=== PATIENT | female | born 1935 | race Caucasian/White ===

== ENCOUNTER → 2016-09-10 | Outpatient (CLI) | payer MEDICARE, BC ==
[~2016-09-10] MED LIST: ALLERCLEAR10 MG PO; ANTIBIOTIC PO; CALCIUM/MAG/VIT D PO; FISH OIL 1,0001 EAC4 PO; HORMONE PO; METOPROLOL TAR25 MG PO; PRAVACHOL20 MG PO; PROTONIX20 MG PO; VITAMIN D350000 UNIT PO; VITAMIN E600 UNIT PO; [UNRECOGNIZED DRUG - OTHER] PO
--- NOTE | ~2016-09-10 | EKG ---
PATIENT: DUNCAN KRISHNAMURTHY UNIT #: [id number] Ventricular Rate: 58 BPM Atrial Rate: 58 BPM P-R Interval: 232 ms QRS Duration: 98 ms Q-T Interval: 416 ms QTC Calculation(Bezet): 408 ms P Linwood: 37 degrees Calculated R Linwood: 42 degrees Calculated T Linwood: 64 degrees Diagnosis Line: Sinus bradycardia with 1st degree A-V block Diagnosis Line: Otherwise normal ECG Diagnosis Line: No previous ECGs available Diagnosis Line: Confirmed by AUGUST CARLOS MD ([id number]) on 09/10/2016 Diagnosis Line: 10:27:44 PM INTERPRETING MD: BREANNA WATSON
== END | disposition home or self-care (01) ==
LOC: CAMB 11:29
DX: Z01.818 Encounter for other preprocedural examination (principal); N63 Unspecified lump in breast
CPT/HCPCS: 93005

== ENCOUNTER → 2016-09-12 | Day surgery (SDC) | payer MEDICARE, BC ==
--- NOTE | ~2016-09-12 | NM79 ---
[facility] A Service of [facility] & [facility] RADIOLOGY TEXT RESULTS PATIENT: DUNCAN KRISHNAMURTHY LOCATION: [facility] : 35 UNIT #: [id number] AGE: [address]: Aiden Bernard MD SEX: F ORDER DR: [id number] [facility] [address] [place] [address]. [place], [place] [address] [id number] O MR#: [id number] Acc #: [id number] NAME: DUNCAN KRISHNAMURTHY : 1935 SEX: F STUDY DATE/TIME: 09/12/2016 11:17 UNIT: [facility] ROOM: STUDY DESCRIPTION: NM [employer] Node Inj Attending Physician: Aiden Bernard M.D. Ordering Physician: Aiden Bernard M.D. Primary Care Physician: Car Galvan M.D. MEDICAL IMAGING REPORT This report is preliminary unless electronic signature is present EXAM [employer] node injection on the left, 09/12/2016 INDICATION Left breast cancer. Injection requested in conjunction with excisional lumpectomy. FINDINGS The patient's prior imaging studies were reviewed. She was deemed an adequate candidate for the procedure. The procedure and risks were explained to the patient. These included but were not limited to bleeding, infection, damage to adjacent structures. The patient gave both oral and written consent to proceed and the consent form was signed and on the chart prior to the procedure. Prior to procedure a "time-out" protocol was also performed to document patient identity and procedure details. The nipple areolar complex on the left was wiped with a sterile alcohol pad x3. Thereafter, using a periareolar approach, 3 separate injections were performed from the 2 o'clock to the 4 o'clock positions in the left breast with a total injection of approximately 568 mcCi of technetium 99m filtered sulfur colloid. There are no immediate post procedure complications. The patient tolerated the procedure well. IMPRESSION Technically successful sentinel node injection on the left. No immediate post procedure complications. Dictated by... Maxim Mendenhall M.D. THIS IS AN ELECTRONICALLY VERIFIED REPORT Maxim Mendenhall M.D. at 09/12/2016 5:13 PM [facility] A Service of [facility] & [facility] RADIOLOGY TEXT RESULTS PATIENT: DUNCAN KRISHNAMURTHY LOCATION: [facility] #: [id number] : 35 UNIT #: [id number] AGE: [address]: Aiden Bernard MD SEX: F ORDER DR: YONI/joceline TD: 09/12/2016 14:40 JOB #: [id number] MEDICAL IMAGING REPORT Page 1 of 1 COPY
--- NOTE | ~2016-09-12 | US202 ---
[facility] A Service of [facility] & [facility] RADIOLOGY TEXT RESULTS PATIENT: DUNCAN KRISHNAMURTHY LOCATION: [facility] : 35 UNIT #: [id number] AGE: [address]: Aiden Bernard MD SEX: F ORDER DR: [id number] [facility] [address] [facility]. [place], [place] [address] [id number] O MR#: [id number] Acc #: [id number] NAME: DUNCAN KRISHNAMURTHY : 1935 SEX: F STUDY DATE/TIME: 09/12/2016 10:04 UNIT: [facility] ROOM: STUDY DESCRIPTION: US Breast Guided Ndl Loc 1st Attending Physician: Aiden Bernard M.D. Ordering Physician: Aiden Bernard M.D. Primary Care Physician: Car Galvan M.D. MEDICAL IMAGING REPORT This report is preliminary unless electronic signature is present EXAM Ultrasound guided needle localization procedure left breast 09/12/2016 INDICATIONS 81-year-old female with biopsy-proven malignancy in the 3 o'clock position left breast; ultrasound guided needle localization procedure for lumpectomy requested. FINDINGS The patient's prior imaging studies for review. She was deemed an adequate candidate for the procedure. Procedure and risks were explained to the patient. These included, but are not limited to bleeding, infection, damage to adjacent structures. The patient gave both oral and written consent to proceed and the consent form was signed and on the chart prior to procedure. Prior to the procedure a "time-out" protocol was performed to document patient identity and procedure details. The left breast was prepped and draped in the usual sterile fashion. Maximum sterile-barrier technique appropriate for procedure guidelines was utilized. This included the use of sterile instruments, sterile gloves, sterile barriers. Local anesthesia was achieved with about 4 mL of a buffered 1% lidocaine solution. Thereafter, using ultrasound guidance, a 5-cm [place] needle and wire system was introduced into the left breast mass at 3 o'clock. Appropriate needle location was documented with ultrasound throughout and images demonstrating appropriate needle placement were saved to the PACS system. The wire was deployed and seen to be in good position on ultrasound. At this point, the procedure was concluded. A clip/wire placement mammogram was performed and demonstrated appropriate needle and wire placement less than 5 mm from the previously placed biopsy clip at 3 o'clock on both projections. Images were marked on the DR PACS system and also printed and marked for intraoperative views with plain STS. [facility] A Service of [facility] RADIOLOGY TEXT RESULTS PATIENT: DUNCAN KRISHNAMURTHY LOCATION: [facility] : 35 UNIT #: [id number] AGE: [address]: Aiden Bernard MD SEX: F ORDER DR: film technique. Subsequent specimen radiograph demonstrates the presence of the previously placed biopsy clip along with the localization wire and a pleomorphic clustered microcalcifications and irregularly marginated mass within the specimen. Findings were called to Dr. Bernard at the time of specimen receipt and dictated separately. Please see the final pathology report for further details. IMPRESSION Successful ultrasound-guided needle localization procedure of a biopsy-proven malignancy in the 3 o'clock position left breast. No immediate post procedure complications. Pathology results are pending. Please see the final pathology report. BIRADS: 6 Known biopsy-proven malignancy. Dictated by... Maxim Mendenhall M.D. THIS IS AN ELECTRONICALLY VERIFIED REPORT Maxim Mendenhall M.D. at 09/12/2016 5:13 PM YONI/opal TD: 09/12/2016 15:18 JOB #: [id number] MEDICAL IMAGING REPORT Page 1 of 1 COPY
--- NOTE | ~2016-09-12 | MY13 ---
[facility] A Service [facility] RADIOLOGY TEXT RESULTS PATIENT: DUNCAN KRISHNAMURTHY LOCATION: [facility] : 35 UNIT #: [id number] AGE: [address]: Aiden Bernard MD SEX: F ORDER DR: [id number] [place] [id number] [facility]. [place], [place] [address] [id number] O MR#: [id number] Acc #: [id number] NAME: DUNCAN KRISHNAMURTHY : 1935 SEX: F STUDY DATE/TIME: 09/12/2016 13:09 UNIT: [facility] ROOM: STUDY DESCRIPTION: MY Surgical Specimen Attending Physician: Aiden Bernard M.D. Ordering Physician: Aiden Bernard M.D. Primary Care Physician: Car Galvan M.D. MEDICAL IMAGING REPORT This report is preliminary unless electronic signature is present EXAM Specimen radiograph 09/12/2016 INDICATION Status post ultrasound-guided needle localization procedure. TECHNIQUE Specimen radiograph was performed. COMPARISON Postprocedure clip placement mammogram 09/12/2016. FINDINGS The specimen radiograph demonstrates the presence of the localization wire, previously placed biopsy clip, and probable two additional venous stasis clips in the specimen along with an irregular marginated mass and cluster of pleomorphic microcalcifications. Additional benign calcifications are also present in the specimen. Findings were called to Dr. Bernard in the operating room at the time of this dictation. IMPRESSION 1. Specimen radiograph contains the previously placed biopsy clip, a cluster of pleomorphic microcalcifications, and irregularly marginated mass, along with probable hemostasis clips. Findings were called to Dr. Bernard in the operating room at the time of this dictation. BIRADS: 6 Known biopsy; proven malignancy. Dictated by... Maxim Mendenhall M.D. [facility] A Service [facility] RADIOLOGY TEXT RESULTS PATIENT: DUNCAN KRISHNAMURTHY LOCATION: [facility] : 35 UNIT #: [id number] AGE: [address]: Aiden Bernard MD SEX: F ORDER DR: THIS IS AN ELECTRONICALLY VERIFIED REPORT Maxim Mendenhall M.D. at 09/12/2016 5:13 PM Jack TD: 09/12/2016 15:06 JOB #: [id number] MEDICAL IMAGING REPORT Page 1 of 1 COPY
--- NOTE | ~2016-09-12 | MY14 ---
[facility] A Service of [facility] RADIOLOGY TEXT RESULTS PATIENT: DUNCAN KRISHNAMURTHY LOCATION: [facility] : 35 UNIT #: [id number] AGE: [address]: Aiden Bernard MD SEX: F ORDER DR: [id number] [facility] [address] [place], [place] [address] [id number] O MR#: [id number] Acc #: [id number] NAME: DUNCAN KRISHNAMURTHY : 1935 SEX: F STUDY DATE/TIME: 09/12/2016 10:24 UNIT: [facility] ROOM: STUDY DESCRIPTION: MY Post Bx Film Attending Physician: Aiden Bernard M.D. Ordering Physician: Aiden Bernard M.D. Primary Care Physician: Car Galvan M.D. MEDICAL IMAGING REPORT This report is preliminary unless electronic signature is present EXAM Clip placement mammogram, 09/12/2016. INDICATION Status post ultrasound-guided needle localization procedure same date. TECHNIQUE CC and true lateral views left breast were obtained and reviewed with an FDA-approved CAD device. COMPARISON 08/20/2016 FINDINGS Previously placed biopsy clip in the 3 o'clock position of the left breast noted. The needle localization wire and needle are superimposed over the clip on the CC view and are less than 5 mm from the clip on the ML view. This documents appropriate positioning of the localization wire for the planned excisional biopsy. Images were printed for intraoperative views and marked for intraoperative views. Images are also now available on the [employer] PACS system and marked as well. Appropriate notes were left in the patient's chart. IMPRESSION The needle and needle localization wire are less than 5 mm from the previously placed biopsy clip in the 3 o'clock position on both projections. Images have been marked on the [employer] system and also printed and marked for intraoperative views with plain film technique. BIRADS: 6 [facility] A Service [facility] RADIOLOGY TEXT RESULTS PATIENT: DUNCAN KRISHNAMURTHY LOCATION: [facility] : 35 UNIT #: [id number] AGE: [address]: Aiden Bernard MD SEX: F ORDER DR: Dictated by... Maxim Mendenhall M.D. THIS IS AN ELECTRONICALLY VERIFIED REPORT Maxim Mendenhall M.D. at 09/12/2016 5:12 PM YONI/napoleon TD: 09/12/2016 12:16 JOB #: [id number] MEDICAL IMAGING REPORT Page 1 of 1 COPY
--- NOTE | ~2016-09-12 | OR ---
Unit #: [id number] #: [id number] Patient: DUNCAN KRISHNAMURTHY [id number] [address] [address] [id number] O MR#: [id number] NAME: DUNCAN KRISHNAMURTHY ROOM: Date of Procedure: 09/12/2016 Admission Date: 09/12/2016 Surgeon: Aiden Bernard M.D. : 1935 Attending Physician: Aiden Bernard M.D. Primary Care Physician: Car Galvan M.D. OPERATIVE REPORT PREOPERATIVE DIAGNOSIS Carcinoma, left breast lateral aspect. POSTOPERATIVE DIAGNOSIS Carcinoma, left breast lateral aspect. PROCEDURES PERFORMED 1. Needle localization lumpectomy, left breast lateral aspect. 2. Left axillary sentinel lymph node biopsy. 3. Left axillary dissection. ANESTHESIA General LMA anesthesia with 0.5% Marcaine plain local anesthesia. FINDINGS The patient's sentinel lymph node was positive with an 8 mm focus. A limited left axillary dissection was performed. The breast lesion was within the specimen on specimen radiograph. SPECIMENS Sent to pathology. COMPLICATIONS None apparent. CONDITION The patient tolerated the procedure well. INDICATIONS FOR PROCEDURE The patient is an 81-year-old white female, who recently had mammography performed. This revealed an abnormality in the lateral aspect of the left breast. 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 She was presented with the options of mastectomy with or without reconstruction versus breast conservation therapy. She wishes to proceed with lumpectomy and left axillary sentinel lymph node biopsy. DESCRIPTION OF PROCEDURE After obtaining informed consent as well as receiving preoperative antibiotics and knee-high SCDs, the patient who earlier in the day underwent ultrasound-guided needle localization of the left breast cancer as well as injection beneath the left nipple areolar complex with Unit #: [id number] #: [id number] Patient: DUNCAN KRISHNAMURTHY radioactive sulfur colloid. She was brought to the operating room and after adequate general LMA anesthesia was obtained, had her left breast injected sterilely with Lymphazurin blue beneath the left nipple-areolar complex. This was massaged for 5 minutes by the clock. At this point in time, the left breast and axilla were prepped and draped in a sterile fashion. Using the Neoprobe as a guide, a curvilinear incision was made with a knife in the left axillary area and it was taken down through the skin with a knife and through the subdermal tissues and subcutaneous tissues to the level of the axillary contents with electrocautery. Hemostasis was obtained with electrocautery as well as micro-clips. The patient was found to have a blue lymph node present beneath the left pectoralis major muscle. This was gently dissected free from the surrounding structures with feeding vessels taken with micro-clips as well as the electrocautery. The radioactive counts were over 100; however, after the node was removed, all counts were essentially zero in the left axilla. The specimen was sent to pathology. While the lymph node was being looked at by the pathologist, a curvilinear incision was made in the lateral aspect of the left breast. Dissection was taken down through the skin with the knife and then the electrocautery was used through the subdermal and subcutaneous tissues. The wire was found and the area around the hook of the wire was grasped with an Allis clamp. It was excised circumferentially with electrocautery with good hemostasis as well as micro-clips being used for hemostasis and 3-0 Vicryl suture ligatures. The specimen was dissected free from the surrounding structures and sent to mammography, where on specimen radiograph, the lesion was present within the specimen as was the clip and wire. The specimen was then sent to pathology. While removing the left breast mass, the pathologist called into the room and informed us that the left sentinel lymph node was positive with an 8 mm focus. At this point in time, an additional axillary tissue was dissected free. It was grasped with a ring clamp and was dissected free from the surrounding structures sweeping down from below the left axillary vein. The area of the thoracodorsal nerve and long thoracic nerves was meticulously avoided. The hemostasis was obtained with the electrocautery as well as micro-clips and 3-0 Vicryl suture ligatures. The left axillary dissection contents were sent to pathology. At this point in time, both wounds were copiously irrigated. There was good hemostasis in each location. Both wounds were infiltrated with 0.5% Marcaine plain local anesthesia. The deep tissues in each location were closed with interrupted 3-0 Vicryl sutures. The skin in each location was closed with surgical florida. A dry dressing was applied followed by a Tegaderm dressing. Needle counts, sponge counts, and instrument counts were all correct as reported by the scrub nurse x2. The patient went from the operating room to the recovery room in stable condition. Dictated by... Lori Hutchins/amado TD: 09/13/2016 05:06 JOB #: [id number] CC: Lori Zapien M.D. [facility] Unit #: [id number] #: [id number] Patient: DUNCAN KRISHNAMURTHY OPERATIVE REPORT Page 1 of 1 X Aiden Bernard MD X PROCEDURE OPERATIVE NOTE
== END | disposition home or self-care (01) ==
LOC: CSUR 08:59
DX: D05.12 Intraductal carcinoma in situ of left breast (principal); C96.9 Malignant neoplasm of lymphoid, hematopoietic and related tissue, unspecified; I10 Essential (primary) hypertension; I25.10 Atherosclerotic heart disease of native coronary artery without angina pectoris; K21.9 Gastro-esophageal reflux disease without esophagitis; Z87.440 Personal history of urinary (tract) infections; Z88.0 Allergy status to penicillin; Z79.899 Other long term (current) drug therapy; Z98.41 Cataract extraction status, right eye; Z98.42 Cataract extraction status, left eye
CPT/HCPCS: 76098; 88305; 88307; 88331; 88360; A9541; G0204; J3010; J3370; Q9968

== ENCOUNTER → 2016-09-24 | Outpatient (CLI) | payer MEDICARE, BC ==
[2016-09-24 12:14] LABS: CALCIUM SERUM 9.3 mg/dL (8.4-10.2); GLOM FILT RATE Estimated 52.8 mL/min (>60); POTASSIUM 4.5 mmol/L (3.5-5.1)
== END | disposition home or self-care (01) ==
LOC: CAMB 10:31
PROVIDERS: Surgery
DX: Z01.812 Encounter for preprocedural laboratory examination (principal); C50.912 Malignant neoplasm of unspecified site of left female breast
CPT/HCPCS: 36415; 80048

== ENCOUNTER → 2016-09-26 | Day surgery (SDC) | payer MEDICARE, BC ==
--- NOTE | ~2016-09-26 | OR ---
Unit #: [id number] #: [id number] Patient: DUNCAN KRISHNAMURTHY [id number] [address] [place], [place] [address] [id number] O MR#: [id number] NAME: DUNCAN KRISHNAMURTHY ROOM: Date of Procedure: 09/26/2016 Admission Date: 09/26/2016 Surgeon: Aiden Bernard M.D. : 1935 Attending Physician: Aiden Bernard M.D. Primary Care Physician: Angelica Caro M.D. OPERATIVE REPORT PREOPERATIVE DIAGNOSIS Positive medial and anterior margin of left breast lumpectomy. POSTOPERATIVE DIAGNOSIS Positive medial and anterior margin of left breast lumpectomy. PROCEDURES PERFORMED Re-excision of anterior margin and medial margins of left breast lumpectomy site. ANESTHESIA General LMA anesthesia with 0.5% Marcaine plain local anesthesia. FINDINGS The patient was found to have a re-excision of the anterior and medial aspects of her lumpectomy site. SPECIMENS Sent to pathology. COMPLICATIONS None apparent. CONDITION The patient tolerated the procedure well. INDICATIONS FOR PROCEDURE The patient is an 81-year-old white female, who is status post left breast lumpectomy for carcinoma of the breast. The patient had a focally positive anterior and medial margins. The remaining margins were negative. She presents at this time for reexcision of these areas. DESCRIPTION OF PROCEDURE After obtaining informed consent as well as receiving preoperative antibiotics, the patient was brought to the operating room and after adequate general LMA anesthesia was obtained, had her right breast and axilla prepped and draped in a sterile fashion. Her florida had been removed from her previous incisions. An elliptical incision was made around the patient's previous incision and was taken down full thickness through the skin and subcutaneous tissues into the cavity. Cultures were sent of the cavity fluid although it was clear serous fluid. The anterior aspect margin, which was re-excision of the previous incision, was sent to Unit #: [id number] #: [id number] Patient: DUNCAN KRISHNAMURTHY pathology. At this point in time, an Allis clamp was used to grasp the medial aspect of the lumpectomy site. A new margin of the medial aspect, a portion of the anterior aspect in that area, and in the deep aspect of the cavity was excised with electrocautery with good hemostasis. It was oriented and sent to pathology. The wound was irrigated. Hemostasis was obtained with the Bovie, infiltrated with 0.5% Marcaine plain local anesthesia and the subdermal tissues were reapproximated with interrupted 3-0 Vicryl suture. The skin was closed with 4-0 Vicryl subcuticular stitch. Benzoin and Steri-Strips were applied over the wound in an occlusive manner, followed by dry dressing and Tegaderm dressing. Steri-Strips were applied over the previous axillary incision where the florida were removed. No Tegaderm was placed in that area as well as the incision was 14 days old. The patient went from the operating room to recovery room in stable condition. Dictated by... Lori Hutchins/amado TD: 09/27/2016 05:03 JOB #: [id number] Robbie Hayden M.D. [facility] OPERATIVE REPORT Page 1 of 1 X Aiden Bernard MD X PROCEDURE OPERATIVE NOTE
== END | disposition home or self-care (01) ==
LOC: CSUR 06:13
DX: C50.912 Malignant neoplasm of unspecified site of left female breast (principal); I10 Essential (primary) hypertension; M48.00 Spinal stenosis, site unspecified; M19.90 Unspecified osteoarthritis, unspecified site; J40 Bronchitis, not specified as acute or chronic; Z79.899 Other long term (current) drug therapy; Z88.0 Allergy status to penicillin; Z98.49 Cataract extraction status, unspecified eye; Z98.890 Other specified postprocedural states
CPT/HCPCS: 87070; 87075; 87205; 88305; 88307; J2405; J3010; J3370